=== PATIENT | male | born 1930 | race American Indian/Alaskan Native ===

== ENCOUNTER 2018-11-04 12:04 | Outpatient (CLI) | payer MEDICARE | END 2018-11-04 12:05 | disposition home or self-care (01) | LOC: C.RADH 12:04 | DX: R63.4 Abnormal weight loss (principal) ==

== ENCOUNTER 2018-11-17 07:53 | Emergency (ER) | payer MEDICARE ==
[2018-11-17 08:01] VITALS: BMI 28.0
[2018-11-17 08:09] VITALS: RESP 19
--- NOTE | 2018-11-17 09:04 | C.PDOC ---
History Of Present Illness 88 y/o male, who was seen in [facility] [place] [address] and XR done which were negative, comes in to ED complaining of right-sided abdominal pain radiating to his right back. Patient stated his worry for gallstones. Reports that his last bowel movement was this morning with loose stools. Otherwise he denies any fever, chills, nausea, vomiting, chest pain, SOB, or other symptoms. Patient has been taking his medications that were prescribed to him. Also reports he has a hernia and has plan for surgery. Time Seen by Provider: 11/17/18 08:16 Chief Complaint (Nursing): Abdominal Pain History Per: Patient History/Exam Limitations: no limitations Onset/Duration Of Symptoms: Days Current Symptoms Are (Timing): Still Present Past Medical History Reviewed: Historical Data, Nursing Documentation, Vital Signs Vital Signs: Last Vital Signs Temp 98.0 F 11/17/18 08:02 Pulse 85 11/17/18 08:02 Resp 19 11/17/18 08:02 BP 136/96 H 11/17/18 08:02 Pulse Ox 98 11/17/18 08:02 - Medical History PMH: Diabetes, HTN Denies: Depression Surgical History: Denies: Pacemaker - [facility] Procedures DX ULTRASOUND NEC (07/03/13) PERCUTAN NEEDLE BIOPSY OF PROSTATE (07/03/13) Family History: States: No Known Family Hx - Social History Hx Alcohol Use: Yes (QUIT 1996) Hx Substance Use: No Review Of Systems Except As Marked, All Systems Reviewed And Found Negative. Constitutional: Negative for: Fever, Chills Cardiovascular: Negative for: Chest Pain Respiratory: Negative for: Shortness of Breath Gastrointestinal: Positive for: Abdominal Pain (Right-sided). Negative for: Nausea, Vomiting Genitourinary: Negative for: Dysuria Neurological: Negative for: Weakness, Numbness Physical Exam - Physical Exam Appears: Non-toxic, No Acute Distress Skin: Warm, Dry, No Rash Head: Atraumatic, Normacephalic Eye(s): bilateral: Normal Inspection Oral Mucosa: Moist Neck: Supple Cardiovascular: Rhythm Regular, No Murmur Respiratory: Normal Breath Sounds, No Rales, No Rhonchi, No Wheezing Gastrointestinal/Abdominal: Soft, Tenderness (to RUQ) Extremity: Bilateral: Atraumatic, Normal Color And Temperature, Normal ROM Neurological/Psych: Oriented x3, Normal Speech ED Course And Treatment - Laboratory Results Result Diagrams: 11/17/18 09:11 11/17/18 09:11 O2 Sat by Pulse Oximetry: 98 (RA) Pulse Ox Interpretation: Normal - CT Scan/US Abdomen US Other Rad Studies (CT/US): Read By Radiologist, Radiology Report Reviewed CT/US Interpretation: FINDINGS: LIVER: Measures 17.1 cm in length. Echogenic liver may be seen in setting of hepatic parenchymal disease or fatty infiltration. No focal hepatic mass identified. The main portal vein appears patent with normal directional flow. No intrahepatic bile duct dilatation. GALLBLADDER: Cholelithiasis including gallstones the gallbladder neck which demonstrated minimal mobility. No gallbladder wall thickening or pericholecystic edema. Negative sonographic Perez's sign as assessed by the mortgage operations manager. COMMON BILE DUCT: Measures 4 mm. PANCREAS: Not well-visualized. RIGHT KIDNEY: Measures approximately 9.5 x 4.9 x 5.4 cm. No obstructing calculus or hydronephrosis identified. 4 mm lower pole calculus. Prominent extra renal pel vis. AORTA: Limited visualization appears grossly unremarkable. IVC: Limited visualization appears grossly unremarkable. OTHER FINDINGS: None . IMPRESSION: Echogenic liver may be seen in setting of hepatic parenchymal disease or fatty infiltration. Cholelithiasis including gallstones the ga llbladder neck which demonstrated minimal mobility. Nonobstructing right lower pole renal calculus. Evidence of prominent extrarenal pelvis. Medical Decision Making Medical Decision Making: Plan: --Bloodwork --UA --Abdomen US Disposition Counseled Patient/Family Regarding: Studies Performed, Diagnosis, Need For Followup - Disposition Referrals: Ida Ta MD [Staff Provider] - Disposition: HOME/ ROUTINE Disposition Time: 10:12 Condition: STABLE Instructions: Gallstones (DC), Acute Abdomen (Belly Pain), Adult (DC) Forms: [facility] (Barbadian), General Discharge Instructions - POA Present On Arrival: None - Clinical Impression Clinical Impression: Abdominal pain, Cholelithiasis - Scribe Statement The provider has reviewed the documentation as recorded by the Oralia Perla Provider Attestation: All medical record entries made by the Paulaiblakia were at my direction and personally dictated by me. I have reviewed the chart and agree that the record accurately reflects my personal performance of the history, physical exam, medical decision making, and the department course for this patient. I have also personally directed, reviewed, and agree with the discharge instructions and disposition.
[2018-11-17 09:18] LABS: BASO % 0.6 % (0.0-2.0); EOS # 0.1 K/uL (0.0-0.7); EOS % 1.6 % (0.0-4.0); HEMOGLOBIN 11.9 g/dL (12.0-18.0); LYMPH # 1.5 K/uL (1.0-4.3); LYMPH % 28.3 % (20.0-40.0); MEAN CORPUSCULAR HEMOGLOBIN 27.7 pg (27.0-31.0); MEAN CORPUSCULAR HGB CONC 31.4 g/dL (33.0-37.0); MEAN PLATELET VOLUME 8.8 fL (7.2-11.7); MONO # 0.4 K/uL (0.0-0.8); MONO % 8.1 % (0.0-10.0); NEUT # 3.3 K/uL (1.8-7.0); NEUT % 61.4 % (50.0-75.0); NRBC % 0.1 % (0.0-2.0); RBC 4.29 Mil/uL (4.40-5.90); RED CELL DISTRIBUTION WIDTH 15.5 % (11.5-14.5); WHITE BLOOD COUNT 5.3 K/uL (4.8-10.8)
[2018-11-17 09:19] LABS: URINE BILIRUBIN NEGATIVE (NEGATIVE); URINE BLOOD NEGATIVE (NEGATIVE); URINE CLARITY Clear (Clear); URINE COLOR Yellow (YELLOW); URINE GLUCOSE (UA) NORMAL (Normal); URINE HYALINE CAST 0-2 /lpf (0-2); URINE LEUKOCYTE ESTERASE NEG Leu/uL (Negative); URINE PROTEIN 1+ mg/dL (NEGATIVE); URINE UROBILINOGEN NORMAL mg/dL (0.2-1.0)
[2018-11-17 09:23] LABS: MEAN CELL VOLUME 88.3 fL (80.0-94.0)
[2018-11-17 09:28] LABS: ALB/GLOB RATIO 1.6 (1.0-2.1); ALBUMIN 4.6 g/dL (3.5-5.0); ALT/SGPT 15 U/L (21-72); AST/SGOT 35 U/L (17-59); BLOOD UREA NITROGEN 18 mg/dL (9-20); CALCIUM 9.4 mg/dl (8.6-10.4); GFR NON-AFRICAN AMERICAN > 60; LIPASE 232 U/L (23-300)
--- NOTE | 2018-11-17 10:02 | US ---
Date of service: 11/17/2018 HISTORY: RUQ pain COMPARISON: None available. TECHNIQUE: Sonographic evaluation of the right upper quadrant of the abdomen. FINDINGS: LIVER: Measures 17.1 cm in length. Echogenic liver may be seen in setting of hepatic parenchymal disease or fatty infiltration. No focal hepatic mass identified. The main portal vein appears patent with normal directional flow. No intrahepatic bile duct dilatation. GALLBLADDER: Cholelithiasis including gallstones the gallbladder neck which demonstrated minimal mobility. No gallbladder wall thickening or pericholecystic edema. Negative sonographic Perez's sign as assessed by the steel molder. COMMON BILE DUCT: Measures 4 mm. PANCREAS: Not well-visualized. RIGHT KIDNEY: Measures approximately 9.5 x 4.9 x 5.4 cm. No obstructing calculus or hydronephrosis identified. 4 mm lower pole calculus. Prominent extra renal pelvis. AORTA: Limited visualization appears grossly unremarkable. IVC: Limited visualization appears grossly unremarkable. OTHER FINDINGS: None . IMPRESSION: Echogenic liver may be seen in setting of hepatic parenchymal disease or fatty infiltration. Cholelithiasis including gallstones the gallbladder neck which demonstrated minimal mobility. Nonobstructing right lower pole renal calculus. Evidence of prominent extrarenal pelvis.
[2018-11-17 10:39] VITALS: BP 120/72; PULSE 80; TEMP 97.6; O2SAT 96
== END 2018-11-17 10:37 | disposition home or self-care (01) ==
LOC: C.ER 07:53
DX: K80.20 Calculus of gallbladder without cholecystitis without obstruction (principal); R10.11 Right upper quadrant pain

== ENCOUNTER 2018-11-25 14:23 | Emergency (ER) | payer MEDICARE ==
[2018-11-25 14:23] VITALS: BMI 28.0
[2018-11-25 14:30] VITALS: RESP 18
--- NOTE | 2018-11-25 15:30 | C.PDOC ---
History Of Present Illness 88yo male, comes to ER reporting right sided chest wall and right back pain. Patient states he was treated for shingles in that area and was given anti- virals, neurontin and an additional medication. He states for the past 2 days, he has cough and pain to the right side of his chest/back. He denies any fever, chills, chest pain, vomiting, itchiness or a rash. No additional complaints. <Lori So - Last Filed: 11/25/18 19:10> History Per: Patient History/Exam Limitations: no limitations Onset/Duration Of Symptoms: Days Quality Of Discomfort: Unable To Describe Associated Symptoms: None Additional History Per: Patient <Lori So - Last Filed: 11/25/18 19:10> <Berlin Buck - Last Filed: 11/25/18 22:49> Time Seen by Provider: 11/25/18 14:38 Chief Complaint (Nursing): Back Pain Past Medical History Reviewed: Historical Data, Nursing Documentation, Vital Signs Vital Signs: Last Vital Signs Temp 98.1 F 11/25/18 14:26 Pulse 76 11/25/18 14:26 Resp 18 11/25/18 14:26 BP 132/70 11/25/18 14:26 Pulse Ox 99 11/25/18 14:26 - Medical History PMH: Diabetes, HTN Denies: Depression Surgical History: No Surg Hx Denies: Pacemaker - [facility] Procedures DX ULTRASOUND NEC (07/03/13) PERCUTAN NEEDLE BIOPSY OF PROSTATE (07/03/13) Family History: States: No Known Family Hx - Social History Hx Alcohol Use: Yes (QUIT 1996) Hx Substance Use: No <Lori So - Last Filed: 11/25/18 19:10> Vital Signs: Last Vital Signs Temp 98.7 F 11/25/18 18:10 Pulse 75 11/25/18 18:10 Resp 18 11/25/18 18:10 BP 132/64 11/25/18 18:10 Pulse Ox 99 11/25/18 19:11 - [facility] Procedures DX ULTRASOUND NEC (07/03/13) PERCUTAN NEEDLE BIOPSY OF PROSTATE (07/03/13) <Berlin Buck - Last Filed: 11/25/18 22:49> Review Of Systems Except As Marked, All Systems Reviewed And Found Negative. Constitutional: Negative for: Fever, Chills Cardiovascular: Negative for: Chest Pain Respiratory: Negative for: Shortness of Breath Gastrointestinal: Negative for: Vomiting Musculoskeletal: Positive for: Back Pain (right sided chest and back pain (prior site of shingles)) Skin: Negative for: Rash <Lori So - Last Filed: 11/25/18 19:10> Physical Exam - Physical Exam Appears: Non-toxic, No Acute Distress Skin: Normal Color Head: Atraumatic, Normacephalic Eye(s): bilateral: Normal Inspection Neck: Normal ROM, Supple Chest: Symmetrical Cardiovascular: Rhythm Regular Respiratory: No Rales, No Rhonchi, No Wheezing, Other (poor inspiratory effort) Gastrointestinal/Abdominal: Normal Exam, Soft Back: No CVA Tenderness, No Vertebral Tenderness, No Paraspinal Tenderness, Othe r (tenderness to right mid back and into right chest (site of previous shingles infection)) Extremity: Normal ROM Neurological/Psych: Oriented x3 <Lori So - Last Filed: 11/25/18 19:10> ED Course And Treatment - Laboratory Results Result Diagrams: 11/25/18 16:26 11/25/18 16:26 O2 Sat by Pulse Oximetry: 99 (RA) Pulse Ox Interpretation: Normal Progress Note: Patient seen in this ER x 1 and at [facility] x 2 prior to today for similar complaints; patient had a RUQ ultrasound which deomnstated cholelithaisis, no signs of cholecystitis. CXR ordered. Labs including Ddimer sent and pending result. At 19:00 case was signed out to <Lori So - Last Filed: 11/25/18 19:10> - Laboratory Results Result Diagrams: 11/25/18 16:26 11/25/18 16:26 Lab Results: PT 12.7 SECONDS (9.7-12.2) H 11/25/18 16:26 INR 1.2 11/25/18 16:26 APTT 34 SECONDS (21-34) 11/25/18 16:26 D-Dimer, Quantitative 268 ng/mlDDU (0-243) H 11/25/18 16:26 Total Bilirubin 0.5 mg/dL (0.2-1.3) 11/25/18 16:26 AST 20 U/L (17-59) 11/25/18 16:26 ALT 10 U/L (21-72) L D 11/25/18 16:26 Alkaline Phosphatase 76 U/L (38-126) 11/25/18 16:26 Total Protein 7.0 g/dL (6.3-8.3) 11/25/18 16:26 Albumin 4.2 g/dL (3.5-5.0) 11/25/18 16:26 Globulin 2.9 gm/dL (2.2-3.9) 11/25/18 16:26 Albumin/Globulin Ratio 1.4 (1.0-2.1) 11/25/18 16:26 <Berlin Buck - Last Filed: 11/25/18 22:49> Medical Decision Making Medical Decision Making: signed over @ 1900, R chest wall post-herpetic neuralgia pt with positionally and digitally reproducable R chest wall discomfort painful to take a deep breath 3 prior ED evals for same complaint. signed over to f/u CTA ro r/o PE pt seen and examined, pt sleeping R chest no rash minimal pain to palpation by MD and pt CTA neg for PE d/c home w opt f/u. <Berlin Buck - Last Filed: 11/25/18 22:49> Disposition - Disposition Disposition Time: 19:11 <Lori So - Last Filed: 11/25/18 19:10> Doctor Will See Patient In The: Office Counseled Patient/Family Regarding: Studies Performed, Diagnosis <Berlin Buck - Last Filed: 11/25/18 22:49> - Disposition Disposition: HOME/ ROUTINE Condition: GOOD Forms: [facility] (Georgian) - Clinical Impression Clinical Impression: Right-sided chest pain - PA / SHOWROOM SALESPERSON / Resident Statement MD/DO has reviewed & agrees with the documentation as recorded. - Scribe Statement The provider has reviewed the documentation as recorded by the Oralia Hopson Provider Attestation: All medical record entries made by the Paulaiblakia were at my direction and personally dictated by me. I have reviewed the chart and agree that the record accurately reflects my personal performance of the history, physical exam, medical decision making, and the department course for this patient. I have also personally directed, reviewed, and agree with the discharge instructions and disposition. <Lori So - Last Filed: 11/25/18 19:10> Physician Patient Turnover Patient Signed Over To: Berlin Buck Handoff Comments: pending CTA <Lori So - Last Filed: 11/25/18 19:10>
--- NOTE | 2018-11-25 15:39 | RAD ---
HISTORY: cough COMPARISON: Chest x-ray performed 11/04/18 TECHNIQUE: Chest PA and lateral FINDINGS: LUNGS: Hyperinflation may be seen in the setting of COPD. No focal consolidation. Please note that chest x-ray has limited sensitivity for the detection of pulmonary masses. PLEURA: No significant pleural effusion identified. No definite pneumothorax . CARDIOVASCULAR: Median sternotomy wires. Heart size top normal. Ectatic aorta with dense atherosclerotic calcifications of the aortic knob. OSSEOUS STRUCTURES: Degenerative changes. VISUALIZED UPPER ABDOMEN: Mild elevation of the right hemidiaphragm. OTHER FINDINGS: None. IMPRESSION: Hyperinflation may be seen in the setting of COPD. No focal consolidation.
[2018-11-25 16:46] LABS: BASO % 0.7 % (0.0-2.0); EOS # 0.2 K/uL (0.0-0.7); EOS % 2.8 % (0.0-4.0); HEMOGLOBIN 11.6 g/dL (12.0-18.0); LYMPH # 1.4 K/uL (1.0-4.3); LYMPH % 21.3 % (20.0-40.0); MEAN CELL VOLUME 86.4 fL (80.0-94.0); MEAN CORPUSCULAR HEMOGLOBIN 28.2 pg (27.0-31.0); MEAN CORPUSCULAR HGB CONC 32.6 g/dL (33.0-37.0); MEAN PLATELET VOLUME 8.7 fL (7.2-11.7); MONO # 0.6 K/uL (0.0-0.8); MONO % 9.6 % (0.0-10.0); NEUT # 4.4 K/uL (1.8-7.0); NEUT % 65.6 % (50.0-75.0); RBC 4.13 Mil/uL (4.40-5.90); RED CELL DISTRIBUTION WIDTH 15.4 % (11.5-14.5); WHITE BLOOD COUNT 6.6 K/uL (4.8-10.8)
[2018-11-25 16:49] LABS: ALB/GLOB RATIO 1.4 (1.0-2.1); ALBUMIN 4.2 g/dL (3.5-5.0); ALT/SGPT 10 U/L (21-72); AST/SGOT 20 U/L (17-59); BLOOD UREA NITROGEN 17 mg/dL (9-20); CALCIUM 9.3 mg/dl (8.6-10.4); GFR NON-AFRICAN AMERICAN > 60
[2018-11-25 16:58] LABS: INR 1.2; PROTHROMBIN TIME 12.7 SECONDS (9.7-12.2)
[2018-11-25] MEDS ORDERED: Iodixanol 320 mg/ml 150 ml Bottle IV ONE (20:02)
[2018-11-25 22:52] VITALS: BP 114/69; PULSE 74; TEMP 98.4; O2SAT 96
--- NOTE | 2018-11-26 11:58 | CT ---
Date of service: 11/25/2018 PROCEDURE: CT Chest with contrast (Pulmonary Angiogram) HISTORY: right pleuritic pain COMPARISON: Chest radiographs 11/25/2018 3:25 p.m.. TECHNIQUE: Axial computed tomography images were obtained of the chest in the pulmonary arterial phase of enhancement. Coronal and sagittal reformatted images were created and reviewed. Intravenous contrast dose: Visipaque 320, 100 cc Radiation dose: Total exam DLP = 624.29 mGy-cm. This CT exam was performed using one or more of the following dose reduction techniques: Automated exposure control, adjustment of the mA and/or kV according to patient size, and/or use of iterative reconstruction technique. FINDINGS: PULMONARY ARTERIES: Unremarkable. No pulmonary embolism. AORTA: No acute findings. No thoracic aortic aneurysm. No aortic atherosclerotic calcification or mural plaque present. LUNGS: Mild emphysematous change are identified at the bilateral apices predominantly with limited right upper lobe fibrosis present. No nodule, mass or pulmonary consolidation. PLEURAL SPACES: Unremarkable. No effusion or pneumothorax. HEART: Borderline cardiomegaly. Extensive coronary artery atherosclerosis noted. No pericardial effusion. No pulmonary vascular congestion evident. Small hiatal hernia identified. LYMPH NODES: No lymphadenopathy. BONES, CHEST WALL: Median sternotomy noted. No fracture or destructive bony lesion evident. OTHER FINDINGS: Incidental cholelithiasis and a right upper pole renal cyst in the upper abdomen. IMPRESSION: Unremarkable CT pulmonary angiogram. No pulmonary embolus. COPD. Post CABG changes. No infiltrate or significant lymphadenopathy. Incidental cholelithiasis. Concordant preliminary report from [place], 11/25/2018, 10:29 p.m..
== END 2018-11-25 23:11 | disposition home or self-care (01) ==
LOC: C.ER 14:23
DX: R07.89 Other chest pain (principal)
CPT/HCPCS: 71046; 71275; 80053; 85025; 85378; 85610; 85730; 99285; Q9967